=== PATIENT | female | born 1975 | race Caucasian/White ===

== ENCOUNTER 2018-03-17 06:35 | Observation (INO) | payer BC ==
[2018-03-16 16:34] LABS: BASOPHILS # (AUTO) 0.1 (0.0-0.1); BASOPHILS % 0.7 % (0.0-1.0); EOSINOPHILS # (AUTO) 0.2 (0.0-0.4); EOSINOPHILS % 2.2 % (0.0-6.0); HEMATOCRIT 39.3 % (34.2-44.1); LYMPHOCYTES # (AUTO) 2.4 (1.0-3.2); MEAN CORPUSCULAR HEMOGLOBIN 30.3 pg (28-32); MEAN CORPUSCULAR HGB CONC 33.1 g/dL (31-35); MEAN CORPUSCULAR VOLUME 91.6 fL (81-99); MONOCYTES # (AUTO) 0.5 (0.2-0.8); NEUTROPHILS # (AUTO) 4.5 (2.1-6.9); NEUTROPHILS % 58.8 % (38.7-80.0); PLATELET COUNT 279 x10e3/uL (140-360); RED BLOOD COUNT 4.29 x10e6/uL (3.6-5.1); RED CELL DISTRIBUTION WIDTH 14.5 % (11.7-14.4)
[2018-03-16 16:43] LABS: INR 0.99; PROTHROMBIN TIME 12.3 seconds (11.9-14.5)
[2018-03-16 16:44] LABS: PARTIAL THROMBOPLASTIN TIME 28.9 seconds (23.8-35.5)
[2018-03-16 16:48] LABS: BLOOD UREA NITROGEN 11 mg/dL (7-26); BUN/CREATININE RATIO 15 (6-25); CALCIUM 9.6 mg/dL (8.4-10.2); CARBON DIOXIDE 25 mmol/L (22-29); CHLORIDE 104 mmol/L (98-107); CREATININE, SERUM 0.74 mg/dL (0.57-1.11); EST GLOMERULAR FILTRATION RATE > 60 ML/MIN (60-); GLUCOSE 84 mg/dL (74-118); SODIUM 139 mmol/L (136-145)
--- NOTE | 2018-03-16 17:19 | Diagnostic Imaging Report ---
PROCEDURE: Frontal and lateral views of the chest. COMPARISON: None. INDICATIONS: pre-op FINDINGS: Lines/tubes: None. Lungs: The lungs are well inflated and clear. There is no evidence of pneumonia or pulmonary edema. Pleura: There is no pleural effusion or pneumothorax. Heart and mediastinum: The heart and the mediastinum are normal. Bones: No acute bony abnormality. IMPRESSION: No acute cardiopulmonary disease. Dictated by: Phillip Rubio M.D. on 03/16/2018 at 17:24 Electronically approved by: Phillip Rubio M.D. on 03/16/2018 at 17:24
[~2018-03-17] VITALS: Ht 167.6 cm; Wt 105.7 kg
[~2018-03-17 06:35] MED LIST: METHOCARBAMOL750 MG PO; METOPROLOL TART50 MG PO; SERTRALINE HCL100 MG PO; SUMATRIPTAN SU100 MG PO; ULTRAM 50MG50 MG PO; ZYRTEC-D TABLE1 EACH PO
[2018-03-17] MEDS ORDERED: GELATIN SPONGE SZ 100 ONE (06:48)
[2018-03-17] MEDS ORDERED: BACITRACIN 50,000 UNIT VIAL ONE (06:48)
[2018-03-17] MEDS ORDERED: THROMBIN FOR SOLN 5,000 UNIT VIAL ONE (06:48)
[2018-03-17] MEDS ORDERED: BUPIVACAINE 0.5%/EPI 30 ML SDV INJ ONE (06:48)
[2018-03-17] MEDS ORDERED: LIDOCAINE HCL (LTA) 4 ML SOLN ONE (06:56)
[2018-03-17] MEDS ORDERED: ACETAMINOPHEN 1000 MG/100 ML 100 ML IV ONE (06:56)
[2018-03-17] MEDS ORDERED: CEFAZOLIN SOD 2 GM/D5W 50ML 50 ML IV ONE (07:54)
[2018-03-17] MEDS: LACTATED RINGER'S 1,000 ML IV SCH ×2 (10:34→18:24)
[2018-03-17] MEDS ORDERED: FENTANYL CITRATE/PF 100MCG/2 ML INJ ONE ×2 (10:38→19:07)
[2018-03-17] MEDS ORDERED: ONDANSETRON HCL INJ 2 MG/ML VIAL IV PRN (10:45)
[2018-03-17] MEDS ORDERED: PROMETHAZINE HCL (IM) 25 MG/ML VIAL IM PRN (10:45)
[2018-03-17] MEDS ORDERED: MAGNESIUM/ALUMINUM/SIMETHICONE 30 ML UDC PO PRN (10:45)
[2018-03-17] MEDS ORDERED: METHOCARBAMOL 750 MG TAB PO SCH (10:45)
[2018-03-17] MEDS ORDERED: CEPACOL SORE THROAT LOZENGES PO PRN (10:45)
[2018-03-17] MEDS ORDERED: ACETAMINOPHEN 325 MG TAB PO PRN (10:45)
[2018-03-17] MEDS ORDERED: ZOLPIDEM TARTRATE 5 MG TAB PO PRN (10:45)
[2018-03-17] MEDS ORDERED: MORPHINE SULFATE 5 MG/ML VIAL IM PRN (10:45)
[2018-03-17] MEDS ORDERED: HYDROMORPHONE 2MG/ML 2 MG/ML ML IV PRN (10:45)
[2018-03-17] MEDS ORDERED: METHOCARBAMOL 750 MG TAB PO PRN (11:45)
[2018-03-17 11:50] VITALS: BP 147/85
[2018-03-17] MEDS: OXYCODONE/ACETAMINOPHEN 5-325 1 EACH TABLET PO PRN ×3 (12:10→21:44)
[2018-03-17] MEDS: CARISOPRODOL 350 MG TAB PO PRN ×2 (12:14→16:14)
[2018-03-17 12:38] VITALS: BP 147/85
[2018-03-17] MEDS ORDERED: CEFAZOLIN SOD 1 GM/D5W 50ML 50 ML IV SCH (14:00)
--- NOTE | 2018-03-17 14:34 | Operative Report ---
DATE OF PROCEDURE: March 17, 2018 PREOPERATIVE DIAGNOSIS: Left L3-4 disk herniation with radiculopathy, M51.16. POSTOPERATIVE DIAGNOSIS: Left L3-4 disk herniation with radiculopathy, M51.16. PROCEDURE: Left L3-4 laminotomy, medial facetectomy, and microsurgical diskectomy, 50011. ANESTHESIA: General. INDICATIONS: The patient is a 42-year-old woman, who presents with left L4 radiculopathy due to an L3-4 disk herniation. She was taken to the operating room for a microsurgical diskectomy. DESCRIPTION OF PROCEDURE: After the induction of general anesthesia, the patient was placed on the operating table in the prone position over a Reese frame. The lumbar region was prepped and draped in a sterile fashion. A preoperative x-ray was obtained. A small midline incision was created. The lumbar fascia was opened to the left of the midline, and subperiosteal dissection was carried out to expose the left-sided L3 and L4 laminae and the medial aspect of the facet joint. A 2nd x-ray confirmed correct localization. The operating microscope was brought in. A high-speed drill equipped with a emily bur was used to drill the inferior aspect of the lamina of L3, the superior aspect of the lamina of L4, and the medial rim of the L3-4 facet joint. The ligamentum flavum was resected. The L4 nerve root was exposed. The herniated disk material came into view just immediately below the level of the disk space and extending laterally into the neural foramen. The herniated disk material was expressed out with a microball probe and grasped with a micropituitary rongeur and removed. The opening into the annulus of the disk was then enlarged with a #11 blade. The loose contents of the L3-4 disk were evacuated with curets and pituitary rongeurs. An angled pituitary was directed laterally within the disk space to remove the subligamentous portion of the disk herniation, which had extended laterally towards the neural foramen. Excellent decompression was thus achieved. The wound was copiously irrigated with bacitracin solution. Meticulous hemostasis was secured. The retractor was removed. The platysma was closed with 3-0 Vicryl sutures. The skin was closed with 4-0 Monocryl sutures in a subcuticular fashion. Steri-Strips and a dressing were applied. The patient was awakened, extubated, and taken to the postanesthesia care unit in stable condition. No intraoperative complications were encountered. Estimated blood loss was 10 mL. Job#: [id number]
[2018-03-17] MEDS ORDERED: PROPOFOL IV EMULSION 10 MG/ML 20 ML VIAL ONE (14:40)
[2018-03-17] MEDS ORDERED: LIDOCAINE HCL 2% LOCAL INJ 5 ML SDV VIAL INJ ONE (14:40)
[2018-03-17] MEDS ORDERED: ROCURONIUM BROMIDE 10 MG/ML 5ML VIAL ONE (14:40)
[2018-03-17] MEDS ORDERED: ONDANSETRON HCL INJ 2 MG/ML VIAL ONE (14:40)
[2018-03-17] MEDS ORDERED: SEVOFLURANE INHAL SOLN 250 ML PEN BTL ONE (14:40)
[2018-03-17] MEDS ORDERED: DEXAMETHASONE SOD PHOS INJ 4 MG/ML VIAL ONE (14:40)
[2018-03-17 15:21] VITALS: BP 113/62
[2018-03-17] MEDS: CEFAZOLIN SOD 1 GM VIAL IV SCH (16:11)
[2018-03-17] MEDS ORDERED: MIDAZOLAM HCL 2 MG/2 ML VIAL ONE (19:07)
[2018-03-17 19:56] VITALS: BP 145/89
[2018-03-17 20:00] VITALS: BP 145/89
[2018-03-17] MEDS ORDERED: SERTRALINE HCL 100 MG TAB PO SCH (21:00)
[2018-03-18 00:02] VITALS: BP 129/72
[2018-03-18] MEDS: CEFAZOLIN SOD 1 GM VIAL IV SCH ×2 (00:54→09:17)
[2018-03-18] MEDS: LACTATED RINGER'S 1,000 ML IV SCH (03:14)
[2018-03-18 03:48] VITALS: BP 101/59
[2018-03-18] MEDS: OXYCODONE/ACETAMINOPHEN 5-325 1 EACH TABLET PO PRN ×2 (04:00→09:30)
[2018-03-18 07:38] VITALS: BP 107/63
[2018-03-18 07:51] VITALS: BP 107/63
[2018-03-18] MEDS ORDERED: METOPROLOL TARTRATE 50 MG TAB PO SCH (09:00)
[2018-03-18] MEDS: CARISOPRODOL 350 MG TAB PO PRN (09:30)
== END 2018-03-18 09:59 | disposition home or self-care (01) ==
LOC: OR 06:35 → PACU V 10:36 → IMCU 11:35
PROVIDERS: ADMIT Neurological Surgery; ATTEND Neurological Surgery
DX: M51.16 Intervertebral disc disorders with radiculopathy, lumbar region (principal); I10 Essential (primary) hypertension; G43.909 Migraine, unspecified, not intractable, without status migrainosus; Z88.2 Allergy status to sulfonamides; Z72.0 Tobacco use; F41.9 Anxiety disorder, unspecified
CPT/HCPCS: 36415; 63047; 71046; 72020; 80048; 81025; 85025; 85610; 85730; 86850; 86900; 88304; 93005; G0378 ×2; J0690 ×2; J1100; J2001; J2250; J2270; J2405